=== PATIENT | male | born 1965 | race Caucasian/White ===

== ENCOUNTER 2021-10-18 17:06 | Inpatient (IN) | payer OTHER ==
[2021-10-18] MEDS ORDERED: DICYCLOMINE HCL 10 MG CAPSULE PO PRN (19:20)
[2021-10-18] MEDS ORDERED: MAG HYDROX/AL HYDROX/SIMETH 30 ML UNIT-DOSE CUP PO PRN (19:20)
[2021-10-18] MEDS ORDERED: LOPERAMIDE HCL 2 MG CAPSULE PO PRN (19:20)
[2021-10-18] MEDS ORDERED: ACETAMINOPHEN 325 MG TABLET (FP) PO PRN ×2 (19:20)
[2021-10-18] MEDS ORDERED: MAGNESIUM CITRATE 300 ML BOTTLE PO PRN (19:20)
[2021-10-18] MEDS ORDERED: ONDANSETRON *ODT* 4 MG TABLET SL PRN (19:20)
[2021-10-18] MEDS ORDERED: IBUPROFEN 400 MG TABLET (FP) PO PRN (19:20)
[2021-10-18] MEDS ORDERED: NICOTINE 10 MG CARTRIDGE (INHALER) IH PRN (19:20)
[2021-10-18] MEDS ORDERED: MAGNESIUM HYDROX 2400MG/30ML ORAL SUSPENSION 30 ML CUP PO PRN (19:20)
[2021-10-18] MEDS ORDERED: BENZOCAINE/MENTHOL (CHLORASEPTIC ) LOZENGE MM PRN (19:20)
[2021-10-18] MEDS ORDERED: IBUPROFEN 600 MG TABLET (FP) PO PRN (19:20)
[2021-10-18] MEDS ORDERED: BISMUTH SUBSALICYLATE 524 MG/30 ML PO PRN (19:20)
[2021-10-18] MEDS ORDERED: NICOTINE POLACRILEX 2 MG GUM BUC PRN (19:24)
[2021-10-18] MEDS ORDERED: ALBUTEROL SO4 HFA INHALER IH ONE (22:53)
[2021-10-18] MEDS: MELATONIN 5 MG TABLETS PO SCH (22:55)
[2021-10-18] MEDS: THIAMINE HCL 100 MG TABLET (FP) PO SCH (22:55)
[2021-10-18] MEDS: hydrOXYzine PAMOATE 25 MG CAPSULE (FP) PO SCH (22:55)
[2021-10-19] MEDS: ALBUTEROL SO4 HFA INHALER IH PRN ×2 (05:22→10:48)
[2021-10-19] MEDS: hydrOXYzine PAMOATE 25 MG CAPSULE (FP) PO SCH ×5 (05:22→23:43)
[2021-10-19] MEDS: PRENATAL VITAMINS W/ FOLIC ACID TABLET (FP) PO SCH (10:47)
[2021-10-19 11:12] LABS: HEMATOCRIT 39.5 % (35.4-49); HEMOGLOBIN 12.9 GM/dL (11.7-16.9); MCHC 32.6 g/dl (32.0-35.9); MEAN PLT VOLUME 9.1 fl (7.5-11.1); PLATELET COUNT 250 10^3/uL (134-434); RBC 4.29 M/mm3 (4.00-5.60); RDW 14.8 % (11.9-15.9)
[2021-10-19 11:13] LABS: ALBUMIN 3.3 g/dl (3.4-5.0); CALCIUM 8.7 mg/dL (8.5-10.1)
[2021-10-19 11:14] LABS: BLOOD UREA NITROGEN 15.5 mg/dL (7-18)
[2021-10-19 11:16] LABS: CREATININE 0.9 mg/dL (0.55-1.3)
[2021-10-19 11:18] LABS: BILIRUBIN,TOTAL 0.4 mg/dL (0.2-1); TOT PROT 6.9 g/dl (6.4-8.2)
[2021-10-19 11:58] LABS: HIV INTERPRETATION NEGATIVE (NEGATIVE)
[2021-10-19] MEDS ORDERED: methaDONE HCL 10 MG TABLET (FOR DETOX USE ONLY) PO ONE (12:00)
[2021-10-19] MEDS: cloNIDine HCL 0.1 MG TABLET PO PRN (12:26)
[2021-10-19] MEDS: METHOCARBAMOL 500 MG TABLET PO PRN (12:26)
[2021-10-19] MEDS: diazePAM 5 MG TABLET PO PRN (12:50)
[2021-10-19] MEDS: MELATONIN 5 MG TABLETS PO SCH (23:43)
[2021-10-19] MEDS: THIAMINE HCL 100 MG TABLET (FP) PO SCH (23:43)
[2021-10-20 01:46] VITALS: BMI 28.5
[2021-10-20] MEDS: hydrOXYzine PAMOATE 25 MG CAPSULE (FP) PO SCH ×5 (06:59→22:37)
[2021-10-20] MEDS: AMOX TR/POT CLAV 875MG/125MG TABLETS (FP) PO SCH ×2 (06:59→17:10)
[2021-10-20] MEDS ORDERED: predniSONE 20 MG TABLET (UD) PO SCH (10:00)
[2021-10-20] MEDS: PRENATAL VITAMINS W/ FOLIC ACID TABLET (FP) PO SCH (10:30)
[2021-10-20] MEDS: DOXYCYCLINE HYCLATE 100 MG CAPSULE PO SCH ×2 (14:49→17:11)
[2021-10-20] MEDS: predniSONE 40 MG, predniSONE 10 MG PO SCH (14:49)
[2021-10-20] MEDS: THIAMINE HCL 100 MG TABLET (FP) PO SCH (22:39)
[2021-10-20] MEDS: MELATONIN 5 MG TABLETS PO SCH (22:39)
[2021-10-20] MEDS: diazePAM 5 MG TABLET PO PRN (22:39)
[2021-10-21] MEDS: hydrOXYzine PAMOATE 25 MG CAPSULE (FP) PO SCH ×5 (06:09→23:01)
[2021-10-21] MEDS: cloNIDine HCL 0.1 MG TABLET PO PRN (06:09)
[2021-10-21] MEDS: AMOX TR/POT CLAV 875MG/125MG TABLETS (FP) PO SCH ×2 (07:06→18:33)
[2021-10-21] MEDS ORDERED: methaDONE HCL 10 MG TABLET (FOR DETOX USE ONLY) PO ONE (10:00)
[2021-10-21] MEDS: PRENATAL VITAMINS W/ FOLIC ACID TABLET (FP) PO SCH (10:21)
[2021-10-21] MEDS: METHOCARBAMOL 500 MG TABLET PO PRN (10:21)
[2021-10-21] MEDS: predniSONE 40 MG, predniSONE 10 MG PO SCH (10:21)
[2021-10-21] MEDS: DOXYCYCLINE HYCLATE 100 MG CAPSULE PO SCH ×2 (10:22→18:07)
[2021-10-21] MEDS: THIAMINE HCL 100 MG TABLET (FP) PO SCH (23:01)
[2021-10-21] MEDS: MELATONIN 5 MG TABLETS PO SCH (23:01)
[2021-10-22] MEDS: hydrOXYzine PAMOATE 25 MG CAPSULE (FP) PO SCH (05:49)
[2021-10-22] MEDS: AMOX TR/POT CLAV 875MG/125MG TABLETS (FP) PO SCH (07:00)
[2021-10-22 08:24] VITALS: PULSE 82
[2021-10-22] MEDS: PRENATAL VITAMINS W/ FOLIC ACID TABLET (FP) PO SCH (09:15)
[2021-10-22] MEDS: DOXYCYCLINE HYCLATE 100 MG CAPSULE PO SCH (09:17)
[2021-10-22] MEDS: predniSONE 40 MG, predniSONE 10 MG PO SCH (09:18)
[2021-10-22 09:34] VITALS: BP 132/85; RESP 17; TEMP 96.9
[2021-10-22] MEDS ORDERED: DOXYCYCLINE HYCLATE 100 MG TABLET PO SCH (10:33)
[2021-10-23] MEDS ORDERED: methaDONE HCL 10 MG TABLET (FOR DETOX USE ONLY) PO ONE (10:00)
== END 2021-10-22 11:00 | disposition home or self-care (01) | DRG 773 ==
LOC: YASAS 17:06 → Y6N 21:24
PROVIDERS: ADMIT Allergy & Immunology; ATTEND Surgery
PROC: HZ2ZZZZ Detoxification Services for Substance Abuse Treatment (ICD-10-PCS; principal; 2021-10-18)
DX: F11.23 Opioid dependence with withdrawal (principal); F17.210 Nicotine dependence, cigarettes, uncomplicated; J45.21 Mild intermittent asthma with (acute) exacerbation; R91.8 Other nonspecific abnormal finding of lung field; M19.90 Unspecified osteoarthritis, unspecified site; Z86.19 Personal history of other infectious and parasitic diseases
CPT/HCPCS: 36415; 80053; 85027; 86593; 86780; 87389; C9803-CS; U0003; U0005

== ENCOUNTER 2021-10-19 18:46 | Emergency (ER) | payer OTHER ==
[2021-10-19 18:51] VITALS: BMI 23.7
[2021-10-19] MEDS ORDERED: DEXAMETHASONE LIQUID 0.5 MG/5 ML PO ONE (19:12)
[2021-10-19] MEDS ORDERED: ALBUTEROL SO4 2.5/IPRATROPIUM 0.5 INH SOL 3 ML VIAL.NEB. NEB ONE ×2 (19:29→20:24)
[2021-10-19] MEDS ORDERED: DEXAMETHASONE SOD PHOSPHATE 10 MG/1 ML VIAL ONE ×2 (19:29→19:42)
[2021-10-19] MEDS: ALBUTEROL SO4 2.5/IPRATROPIUM 0.5 INH SOL 3 ML VIAL.NEB. NEB SCH ×4 (19:30→20:25)
[2021-10-19] MEDS ORDERED: predniSONE 20 MG TABLET (UD) ONE (19:44)
[2021-10-19] MEDS ORDERED: predniSONE 20 MG TABLET (UD) PO ONE (19:44)
[2021-10-19] MEDS ORDERED: ALBUTEROL SO4 0.083% IH SOL 2.5 MG/3 ML VIAL.NEB. NEB ONE ×2 (21:15→21:20)
[2021-10-19 22:19] VITALS: TEMP 98.6
[2021-10-19] MEDS ORDERED: DOXYCYCLINE HYCLATE 100 MG CAPSULE PO ONE ×2 (22:21→22:31)
[2021-10-19] MEDS ORDERED: AMOX TR/POT CLAV 875MG/125MG TABLETS (FP) PO ONE (22:21)
[2021-10-19] MEDS ORDERED: AMOX TR/POT CLAV 875MG/125MG TABLETS (FP) ONE (22:31)
[2021-10-20 00:12] VITALS: BP 101/60; PULSE 78; RESP 18
== END 2021-10-20 01:18 | disposition home or self-care (01) ==
LOC: JER 18:46
PROC: 3E0F7GC Introduction of Other Therapeutic Substance into Respiratory Tract, Via Natural or Artificial Opening (ICD-10-PCS; principal; 2021-10-19)
PROC: 3E0F7GC Introduction of Other Therapeutic Substance into Respiratory Tract, Via Natural or Artificial Opening (ICD-10-PCS; 2021-10-19)
DX: J18.9 Pneumonia, unspecified organism (principal); J45.21 Mild intermittent asthma with (acute) exacerbation
CPT/HCPCS: 0241U-QW; 71045-TC-FY; 93005; 93010; 99285-25

== ENCOUNTER 2022-02-25 09:57 | Inpatient (IN) | payer OTHER ==
[2022-02-25 10:23] VITALS: BMI 21.7
[2022-02-25] MEDS ORDERED: BISMUTH SUBSALICYLATE 262 MG/15 ML BTL PO PRN (11:18)
[2022-02-25] MEDS ORDERED: IBUPROFEN 600 MG TABLET (FP) PO PRN (11:18)
[2022-02-25] MEDS ORDERED: ACETAMINOPHEN 325 MG TABLET (FP) PO PRN ×2 (11:18)
[2022-02-25] MEDS ORDERED: NICOTINE 10 MG CARTRIDGE (INHALER) IH PRN (11:18)
[2022-02-25] MEDS ORDERED: MAG HYDROX/AL HYDROX/SIMETH 30 ML UNIT-DOSE CUP PO PRN (11:18)
[2022-02-25] MEDS ORDERED: NICOTINE POLACRILEX 2 MG GUM BUC PRN (11:18)
[2022-02-25] MEDS ORDERED: BENZOCAINE/MENTHOL (CHLORASEPTIC ) LOZENGE MM PRN (11:18)
[2022-02-25] MEDS ORDERED: MAGNESIUM HYDROX 2400MG/30ML ORAL SUSPENSION 30 ML CUP PO PRN (11:18)
[2022-02-25] MEDS ORDERED: IBUPROFEN 400 MG TABLET (FP) PO PRN (11:18)
[2022-02-25] MEDS ORDERED: NALOXONE HCL (KLOXXADO) 8 MG SPRAY NS PRN (11:18)
[2022-02-25] MEDS ORDERED: ONDANSETRON *ODT* 4 MG TABLET SL PRN (11:18)
[2022-02-25] MEDS ORDERED: POLYETHYLENE GLYCOL (HEALTHYLAX) 3350 17 GM PACKET PO PRN (11:18)
[2022-02-25] MEDS ORDERED: methaDONE HCL 10 MG TABLET (FOR DETOX USE ONLY) PO ONE (11:18)
[2022-02-25] MEDS ORDERED: METHOCARBAMOL 500 MG TABLET PO PRN (11:18)
[2022-02-25] MEDS ORDERED: cloNIDine HCL 0.1 MG TABLET PO PRN (11:18)
[2022-02-25] MEDS ORDERED: PATIENT'S OWN MEDICATION (NON-FORMULARY) (Albuterol Sulfate [Proair Respiclick] 90 MCG Aer PO PRN (11:38)
[2022-02-25] MEDS ORDERED: BUDESONIDE FORMOTEROL IH SCH (11:45)
[2022-02-25] MEDS ORDERED: methaDONE HCL 10 MG TABLET (FOR DETOX USE ONLY) ONE (11:46)
[2022-02-25] MEDS: PRENATAL VITAMINS W/ FOLIC ACID TABLET (FP) PO SCH (12:03)
[2022-02-25] MEDS ORDERED: ALBUTEROL SO4 HFA INHALER IH PRN (13:09)
[2022-02-25 14:57] LABS: HEMATOCRIT 37.7 % (35.4-49); HEMOGLOBIN 12.5 GM/dL (11.7-16.9); MCH 30.5 pg (25.7-33.7); MCHC 33.2 g/dl (32.0-35.9); MEAN CELL VOLUME 91.9 fl (80-96); MEAN PLT VOLUME 9.5 fl (7.5-11.1); PLATELET COUNT 243 10^3/uL (134-434); RBC 4.11 M/mm3 (4.00-5.60); RDW 14.6 % (11.9-15.9); WHITE BLOOD COUNT 10.3 K/mm3 (4.0-10.0)
[2022-02-25 18:07] LABS: CALCIUM 8.3 mg/dL (8.5-10.1)
[2022-02-25 18:08] LABS: ALBUMIN 3.3 g/dl (3.4-5.0); BLOOD UREA NITROGEN 21.1 mg/dL (7-18)
[2022-02-25 18:11] LABS: CREATININE 0.9 mg/dL (0.55-1.3)
[2022-02-25 18:12] LABS: BILIRUBIN,TOTAL 0.4 mg/dL (0.2-1)
[2022-02-25 18:13] LABS: TOT PROT 7.2 g/dl (6.4-8.2)
[2022-02-25] MEDS: LOPERAMIDE HCL 2 MG CAPSULE PO PRN (18:20)
[2022-02-25] MEDS: DICYCLOMINE HCL 10 MG CAPSULE PO PRN (18:20)
[2022-02-25] MEDS: chlordiazePOXIDE HCL 25 MG CAPSULE PO SCH ×2 (18:20→22:59)
[2022-02-25] MEDS: THIAMINE HCL 100 MG TABLET (FP) PO SCH (22:58)
[2022-02-25] MEDS: MELATONIN 5 MG TABLETS PO SCH (22:58)
[2022-02-25] MEDS: BUDESONIDE/FORMETEROL FUMARATE 160/4.5 mcg INHALER IH SCH (23:01)
[2022-02-26] MEDS: chlordiazePOXIDE HCL 25 MG CAPSULE PO SCH ×4 (06:24→23:00)
[2022-02-26] MEDS: BUDESONIDE/FORMETEROL FUMARATE 160/4.5 mcg INHALER IH SCH ×2 (10:11→23:00)
[2022-02-26] MEDS: PRENATAL VITAMINS W/ FOLIC ACID TABLET (FP) PO SCH (10:11)
[2022-02-26] MEDS: MELATONIN 5 MG TABLETS PO SCH (22:59)
[2022-02-26] MEDS: THIAMINE HCL 100 MG TABLET (FP) PO SCH (23:00)
[2022-02-27] MEDS: chlordiazePOXIDE HCL 25 MG CAPSULE PO SCH ×4 (06:23→22:29)
[2022-02-27] MEDS ORDERED: methaDONE HCL 10 MG TABLET (FOR DETOX USE ONLY) PO ONE (10:00)
[2022-02-27] MEDS: PRENATAL VITAMINS W/ FOLIC ACID TABLET (FP) PO SCH (10:14)
[2022-02-27] MEDS: BUDESONIDE/FORMETEROL FUMARATE 160/4.5 mcg INHALER IH SCH ×2 (10:15→22:27)
[2022-02-27] MEDS: DICYCLOMINE HCL 10 MG CAPSULE PO PRN (17:47)
[2022-02-27] MEDS: LOPERAMIDE HCL 2 MG CAPSULE PO PRN (17:48)
[2022-02-27] MEDS: MELATONIN 5 MG TABLETS PO SCH (22:28)
[2022-02-27] MEDS: THIAMINE HCL 100 MG TABLET (FP) PO SCH (22:28)
[2022-02-27] MEDS: CYPROHEPTADINE HCL 4 MG TABLET PO SCH (23:14)
[2022-02-28] MEDS: chlordiazePOXIDE HCL 10 MG CAPSULE PO SCH ×4 (06:08→22:45)
[2022-02-28] MEDS: CYPROHEPTADINE HCL 4 MG TABLET PO SCH ×3 (06:18→17:20)
[2022-02-28] MEDS: PRENATAL VITAMINS W/ FOLIC ACID TABLET (FP) PO SCH (10:06)
[2022-02-28] MEDS: BUDESONIDE/FORMETEROL FUMARATE 160/4.5 mcg INHALER IH SCH ×2 (10:08→22:44)
[2022-02-28] MEDS: MELATONIN 5 MG TABLETS PO SCH (22:44)
[2022-02-28] MEDS: THIAMINE HCL 100 MG TABLET (FP) PO SCH (22:45)
[2022-03-01] MEDS: CYPROHEPTADINE HCL 4 MG TABLET PO SCH ×3 (06:13→17:54)
[2022-03-01] MEDS: chlordiazePOXIDE HCL 10 MG CAPSULE PO SCH ×2 (06:13→17:34)
[2022-03-01] MEDS ORDERED: methaDONE HCL 10 MG TABLET (FOR DETOX USE ONLY) PO ONE (10:00)
[2022-03-01] MEDS: PRENATAL VITAMINS W/ FOLIC ACID TABLET (FP) PO SCH (10:07)
[2022-03-01] MEDS: BUDESONIDE/FORMETEROL FUMARATE 160/4.5 mcg INHALER IH SCH ×2 (10:08→23:02)
[2022-03-01] MEDS: MELATONIN 5 MG TABLETS PO SCH (23:01)
[2022-03-01] MEDS: THIAMINE HCL 100 MG TABLET (FP) PO SCH (23:02)
[2022-03-02] MEDS: CYPROHEPTADINE HCL 4 MG TABLET PO SCH ×2 (06:22→10:33)
[2022-03-02 09:50] VITALS: BP 112/74; PULSE 106; RESP 16; TEMP 97.3
[2022-03-02] MEDS: PRENATAL VITAMINS W/ FOLIC ACID TABLET (FP) PO SCH (10:33)
[2022-03-02] MEDS: BUDESONIDE/FORMETEROL FUMARATE 160/4.5 mcg INHALER IH SCH (10:33)
== END 2022-03-02 10:57 | disposition home or self-care (01) | DRG 773 ==
LOC: YASAS 09:57 → Y3N 11:57
PROVIDERS: ADMIT Allergy & Immunology; ATTEND Surgery
PROC: HZ2ZZZZ Detoxification Services for Substance Abuse Treatment (ICD-10-PCS; principal; 2022-02-25)
DX: F11.23 Opioid dependence with withdrawal (principal); F10.230 Alcohol dependence with withdrawal, uncomplicated; F17.210 Nicotine dependence, cigarettes, uncomplicated; F32.A Depression, unspecified; E78.5 Hyperlipidemia, unspecified; J45.20 Mild intermittent asthma, uncomplicated; Z56.0 Unemployment, unspecified; Z59.01 Sheltered homelessness
CPT/HCPCS: 36415; 80053; 85027; 86593; 86780; 87811; C9803-CS; Q0162; U0003; U0005

== ENCOUNTER 2022-04-17 10:27 | Inpatient (IN) | payer OTHER ==
[2022-04-17 10:59] VITALS: BMI 21.6
[2022-04-17] MEDS ORDERED: DICYCLOMINE HCL 10 MG CAPSULE PO PRN (11:31)
[2022-04-17] MEDS ORDERED: POLYETHYLENE GLYCOL (HEALTHYLAX) 3350 17 GM PACKET PO PRN (11:31)
[2022-04-17] MEDS ORDERED: NICOTINE 14 MG/24 HOURS TOPICAL PATCH TD PRN (11:31)
[2022-04-17] MEDS ORDERED: NICOTINE 10 MG CARTRIDGE (INHALER) IH PRN (11:31)
[2022-04-17] MEDS ORDERED: ONDANSETRON *ODT* 4 MG TABLET SL PRN (11:31)
[2022-04-17] MEDS ORDERED: MAGNESIUM HYDROX 2400MG/30ML ORAL SUSPENSION 30 ML CUP PO PRN (11:31)
[2022-04-17] MEDS ORDERED: LOPERAMIDE HCL 2 MG CAPSULE PO PRN (11:31)
[2022-04-17] MEDS ORDERED: ACETAMINOPHEN 325 MG TABLET (FP) PO PRN ×2 (11:31)
[2022-04-17] MEDS ORDERED: NALOXONE HCL (KLOXXADO) 8 MG SPRAY NS PRN (11:31)
[2022-04-17] MEDS ORDERED: IBUPROFEN 400 MG TABLET (FP) PO PRN (11:31)
[2022-04-17] MEDS ORDERED: BISMUTH SUBSALICYLATE 262 MG/15 ML BTL PO PRN (11:31)
[2022-04-17] MEDS ORDERED: methaDONE HCL 10 MG TABLET (FOR DETOX USE ONLY) PO ONE (11:31)
[2022-04-17] MEDS ORDERED: METHOCARBAMOL 500 MG TABLET PO PRN (11:31)
[2022-04-17] MEDS ORDERED: IBUPROFEN 600 MG TABLET (FP) PO PRN (11:31)
[2022-04-17] MEDS ORDERED: BENZOCAINE/MENTHOL (CHLORASEPTIC ) LOZENGE MM PRN (11:31)
[2022-04-17] MEDS ORDERED: hydrOXYzine PAMOATE 25 MG CAPSULE (FP) PO PRN (11:31)
[2022-04-17] MEDS ORDERED: MAG HYDROX/AL HYDROX/SIMETH 30 ML UNIT-DOSE CUP PO PRN (11:31)
[2022-04-17] MEDS ORDERED: cloNIDine HCL 0.1 MG TABLET PO PRN (11:31)
[2022-04-17] MEDS ORDERED: methaDONE HCL 10 MG TABLET (FOR DETOX USE ONLY) ONE (12:22)
[2022-04-17] MEDS: ALBUTEROL SO4 HFA INHALER IH PRN (20:32)
[2022-04-17] MEDS: MELATONIN 5 MG TABLETS PO SCH (22:24)
[2022-04-17] MEDS: THIAMINE HCL 100 MG TABLET (FP) PO SCH (22:24)
[2022-04-17] MEDS: BUDESONIDE/FORMETEROL FUMARATE 160/4.5 mcg INHALER IH SCH (22:24)
[2022-04-18] MEDS: ALBUTEROL SO4 HFA INHALER IH PRN ×2 (07:26→21:43)
[2022-04-18] MEDS ORDERED: PRENATAL VITAMINS W/ FOLIC ACID TABLET (FP) PO SCH (10:00)
[2022-04-18] MEDS: BUDESONIDE/FORMETEROL FUMARATE 160/4.5 mcg INHALER IH SCH ×2 (10:29→21:48)
[2022-04-18 14:22] LABS: HEMATOCRIT 37.4 % (35.4-49); HEMOGLOBIN 12.5 GM/dL (11.7-16.9); MCH 29.9 pg (25.7-33.7); MCHC 33.5 g/dl (32.0-35.9); MEAN CELL VOLUME 89.1 fl (80-96); PLATELET COUNT 315 10^3/uL (134-434); RDW 14.3 % (11.9-15.9); WHITE BLOOD COUNT 5.4 K/mm3 (4.0-10.0)
[2022-04-18 14:43] LABS: ALBUMIN 3.2 g/dl (3.4-5.0)
[2022-04-18 14:44] LABS: BLOOD UREA NITROGEN 14.9 mg/dL (7-18)
[2022-04-18 14:46] LABS: CREATININE 1.1 mg/dL (0.55-1.3)
[2022-04-18 14:48] LABS: BILIRUBIN,TOTAL 0.2 mg/dL (0.2-1)
[2022-04-18 14:50] LABS: TOT PROT 7.2 g/dl (6.4-8.2)
[2022-04-18] MEDS: MELATONIN 5 MG TABLETS PO SCH (23:28)
[2022-04-18] MEDS: THIAMINE HCL 100 MG TABLET (FP) PO SCH (23:28)
[2022-04-19 09:30] VITALS: BP 137/66; PULSE 96; RESP 18; TEMP 98.2
[2022-04-19] MEDS ORDERED: methaDONE HCL 10 MG TABLET (FOR DETOX USE ONLY) PO ONE (10:00)
[2022-04-21] MEDS ORDERED: methaDONE HCL 10 MG TABLET (FOR DETOX USE ONLY) PO ONE (10:00)
== END 2022-04-19 09:40 | disposition left against medical advice (07) | DRG 770 ==
LOC: YASAS 10:27 → Y6N 12:01
PROVIDERS: ADMIT Allergy & Immunology; ATTEND Surgery
PROC: HZ2ZZZZ Detoxification Services for Substance Abuse Treatment (ICD-10-PCS; principal; 2022-04-17)
DX: F11.23 Opioid dependence with withdrawal (principal); F17.210 Nicotine dependence, cigarettes, uncomplicated; E78.5 Hyperlipidemia, unspecified; G47.00 Insomnia, unspecified; J45.20 Mild intermittent asthma, uncomplicated; R73.9 Hyperglycemia, unspecified; Z86.19 Personal history of other infectious and parasitic diseases
CPT/HCPCS: 36415; 80053; 83036; 85027; 86593; 86780; 87811; C9803-CS; U0003; U0005